=== PATIENT | male | born 2005 | race Caucasian/White ===

== ENCOUNTER 2023-09-03 21:37 | Emergency (ER) | payer SELFPAY | END 2023-09-03 23:35 | disposition left against medical advice (07) | LOC: M ED 21:37 | DX: Z53.21 Procedure and treatment not carried out due to patient leaving prior to being seen by health care provider (principal) ==

== ENCOUNTER 2024-02-07 03:22 | Emergency (ER) | payer OTHER, SELFPAY ==
[~2024-02-07] VITALS: Ht 185.4 cm; Wt 111.5 kg
[2024-02-07 03:29] VITALS: BP 148/76; TEMP 97.4; O2SAT 100
== END 2024-02-07 06:08 | disposition left against medical advice (07) ==
LOC: M ED 03:22
DX: Z53.21 Procedure and treatment not carried out due to patient leaving prior to being seen by health care provider (principal)

== ENCOUNTER → 2024-07-04 | Outpatient (REF) | payer OTHER ==
[2024-07-04 07:51] LABS: SEMEN APPEARANCE OPAQUE (OPAQUE); SEMEN VISCOSITY LIQUID (LIQUID); WBC CONCENTRATION <=1 M/ml (<=1 M/ml)
[2024-07-04 07:52] LABS: TOTAL PROGRESSIVE SPERM 31.9 M/Ejac.
== END ==
LOC: M LAB REF 07:35
PROVIDERS: ATTEND Physician Assistant
DX: N46.9 Male infertility, unspecified (principal)

== ENCOUNTER 2025-01-27 16:16 | Emergency (ER) | payer OTHER ==
[~2025-01-27] VITALS: Ht 185.4 cm; Wt 111.3 kg
[2025-01-27] MEDS ORDERED: HYDR-3363 PO (16:34)
[2025-01-27] MEDS ORDERED: PRAZ1CAP PO (16:34)
[2025-01-27] MEDS ORDERED: SERT50TA29 PO (16:34)
[2025-01-27 17:04] LABS: BASO # 0.1 10^3/uL (0.0-0.2); BASO % 0.5 % (0.0-1.0); EOS # 0.0 10^3/uL (0.0-0.5); EOS % 0.0 % (0.0-3.0); LYMPH # 2.5 10^3/uL (1.5-5.0); LYMPH % 22.9 % (24.0-44.0); MONO # 0.7 10^3/uL (0.0-0.8); MONO % 6.4 % (2.0-8.0); NEUTROPHILS # 7.5 10^3/uL (1.5-8.5); NEUTROPHILS % 69.8 % (36.0-66.0); PLATELET COUNT, AUTOMATED 235 10^3/uL (150-450)
[2025-01-27] MEDS: NS (Normal Saline) 0.9% 1,000 ML IV ONE (17:04)
[2025-01-27 17:27] LABS: ACETONE/KETONE 0.39 MMOL/L (0.02-0.27); OSMOLALITY SERUM 287 MOSM/KG (275-295)
[2025-01-27 17:28] LABS: ALT/SGPT 50 U/L (7.0-40); AST/SGOT 22 U/L (<34); CALCIUM LEVEL 9.3 MG/DL (8.5-10.1); CARBON DIOXIDE LEVEL 24 MMOL/L (20-31); CHLORIDE LEVEL 105 MMOL/L (98-107); CREATININE FOR GFR 0.95 MG/DL (0.70-1.30); GLOMERULAR FILTRATION RATE > 90.0 (>60); POTASSIUM SERUM 3.8 MMOL/L (3.5-5.1); SODIUM LEVEL 141 MMOL/L (136-145)
[2025-01-27] MEDS ORDERED: HOME MED LIST COMPLETE! XX SCH (17:35)
[2025-01-27 17:41] LABS: ESTIMATED AVERAGE GLUCOSE 105.0 MG/DL (60-110)
[2025-01-27 17:46] LABS: KETONE, URINE AUTO RFX TRACE mg/dL (NEGATIVE); LEUKOCYTE ESTERASE UR AUTO RFX NEGATIVE (NEGATIVE); MUCUS, URINE RFX SMALL (NEGATIVE); NITRITE, URINE AUTO RFX NEGATIVE (NEGATIVE); RBC, URINE AUTO RFX 2 /HPF (0-3); SQUAM EPITHELIAL CELL UR AURFX 0 /HPF (0-6); WBC, URINE AUTO RFX 2 /HPF (0-3)
[2025-01-27] MEDS: ACETAMINOPHEN 325 MG TAB PO ONE (18:21)
[2025-01-27 18:45] VITALS: BP 145/72; O2SAT 98
[2025-01-27 18:51] VITALS: TEMP 98
== END 2025-01-27 18:53 | disposition home or self-care (01) ==
LOC: EDBD 16:16 → M ED 16:16
DX: H53.123 Transient visual loss, bilateral (principal); R51.9 Headache, unspecified; I10 Essential (primary) hypertension; Z88.0 Allergy status to penicillin; Z88.5 Allergy status to narcotic agent; Z88.8 Allergy status to other drugs, medicaments and biological substances